=== PATIENT | female | born 1935 | race Caucasian/White ===

== ENCOUNTER 2018-01-01 14:59 | Outpatient (CLI) | payer MEDICARE, BC ==
--- NOTE | 2018-01-02 10:21 | CT ---
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 Evaluate for a perineural mass. FINDINGS: The radial nerve at the level of the forearm appears normal, as there is a clear at plane between the brachial radialis and brachialis muscles containing the radial nerve. No radial nerve mass is apprec iated at the level of the elbow, where the takeoff of the superficial and deep branches takes, place. No large ganglion cyst is appreciated at the level of the elbow joint. There is very subtle loss of alignment of supinator and extensor carpi ulnaris muscles. There appears to be normal fat around the posterior interosseous nerve at the arcade of [place]. Bones: No fracture. No malalignment. Tendons: There are subtle enthesopathic changes at the common extensor tendon. Triceps tendon is intact. Bicep s tendon and brachialis tendons are intact. IMPRESSION: Very subtle atrophy of the supinator muscle and extensor carpi ulnaris can be seen with impingement u ary the posterior interosseous nerve. No mass is appreciated to explain nerve entrapment and the nerv e appears normal at the level of the arcade of [place]. POS: [facility]
== END 2018-01-01 15:00 | disposition home or self-care (01) ==
LOC: SCSULT 14:59 → SCSCT 15:00
PROVIDERS: ATTEND Orthopaedic Surgery Hand Surgery
DX: G56.31 Lesion of radial nerve, right upper limb (principal)
CPT/HCPCS: 82565

== ENCOUNTER 2022-08-23 18:39 | Inpatient (IN) | payer MEDICARE, OTHER ==
[2022-08-23] MEDS ORDERED: Ondansetron ODT 4 MG TAB PO PRN (19:21)
[2022-08-23] MEDS ORDERED: Dextrose 5% in Water 1,000 ML IV PRN (19:21)
[2022-08-23] MEDS ORDERED: Ondansetron PF 4 MG/2 ML Vial IVP PRN (19:21)
[2022-08-23] MEDS ORDERED: Morphine 2 MG/ML VIAL SLOW IVP PRN (19:21)
[2022-08-23] MEDS ORDERED: hydrALAZINE 20 MG/ML VIAL SLOW IVP PRN (19:21)
[2022-08-23] MEDS ORDERED: Morphine 4 MG/ML VIAL SLOW IVP PRN (19:21)
[2022-08-23] MEDS ORDERED: Ipratropium/Albuterol 3 ML NEB NEB PRN (19:21)
[2022-08-23] MEDS ORDERED: Glucagon 1 MG/ML KIT IM PRN (19:21)
[2022-08-23] MEDS ORDERED: Dextrose 50% Abboject 50 ML SYRINGE SLOW IVP PRN (19:21)
[2022-08-23] MEDS ORDERED: traMADol HCl 50 MG TAB PO PRN (19:26)
[2022-08-23] MEDS: Famotidine 20 MG TAB PO SCH (22:43)
[2022-08-23] MEDS: Senokot S 8.6-50 MG TAB PO SCH (22:43)
[2022-08-23] MEDS: Gabapentin 100 MG CAP PO SCH (22:45)
[2022-08-23 23:47] VITALS: BMI 24.1
[2022-08-23] MEDS ORDERED: traMADol HCl 50 MG TAB PO SCH (23:59)
[2022-08-24] MEDS: Acetaminophen 500 MG TAB PO SCH ×4 (00:26→16:48)
[2022-08-24 05:08] LABS: #Eosinphils 0.1 thou/uL (0.0-0.7); #Monocytes 0.8 thou/uL (0.11-0.59); #Neutrophils 8.7 thou/uL (1.40-6.50); %Basophils 0.3 % (0.0-1.0); %Eosinophils 0.5 % (0.0-10.0); %Lymphocytes 12.1 % (21.0-51.0); %Monocytes 7.3 % (0.0-10.0); %Neutrophils 79.2 % (42.0-75.0); Hemoglobin 6.8 g/dL (12.0-16.0); Mean Corpuscular HGB CONC 30.1 g/dL (32.0-36.0); Mean Corpuscular Volume 89.7 fl (78.0-98.0); Mean Platelet Volume 10.8 fL (7.4-10.4); Platelet Count 135 10x3/uL (130-400); RBC Distribution Width 15.3 % (11.5-14.5); Red Blood Cell (RBC) Count 2.52 mill/uL (4.20-5.40); White Blood Cell (WBC) Count 11.1 10x3/uL (4.8-10.8)
[2022-08-24 05:25] LABS: Phosphorus 4.9 mg/dL (2.3-4.7)
[2022-08-24 05:26] LABS: Anion Gap 14 mmol/L (10-20); BUN (Urea Nitrogen) 29 mg/dL (9.8-20.1); Calc. Creatinine Clearance 23 mL/min (70-130); Calcium 8.9 mg/dL (7.8-10.44); Carbon Dioxide 23 mmol/L (23-31); Chloride 105 mmol/L (98-107); Estimated GFR 33; Glucose 162 mg/dL (83-110); Magnesium 1.8 mg/dL (1.6-2.6); Potassium 4.5 mmol/L (3.5-5.1); Sodium 137 mmol/L (136-145)
[2022-08-24] MEDS ORDERED: Sodium Chloride 0.9% 500 ML IVPB SCH (07:15)
[2022-08-24] MEDS: Gabapentin 100 MG CAP PO SCH ×3 (07:17→21:19)
[2022-08-24] MEDS: Sodium Chloride 0.45% 1,000 ML IV SCH ×3 (08:22→21:19)
[2022-08-24] MEDS: Polyethylene Glycol 3350 17 GM Packet PO SCH (09:44)
[2022-08-24] MEDS: Senokot S 8.6-50 MG TAB PO SCH ×2 (09:44→21:19)
[2022-08-24 15:12] LABS: #Basophils 0.1 thou/uL (0.0-0.2); #Eosinphils 0.3 thou/uL (0.0-0.7); #Monocytes 0.9 thou/uL (0.11-0.59); #Neutrophils 7.4 thou/uL (1.40-6.50); %Basophils 0.5 % (0.0-1.0); %Eosinophils 2.6 % (0.0-10.0); %Lymphocytes 15.9 % (21.0-51.0); %Monocytes 9.1 % (0.0-10.0); %Neutrophils 71.4 % (42.0-75.0); Mean Corpuscular HGB CONC 31.3 g/dL (32.0-36.0); Mean Corpuscular Hemoglobin 28.1 pg (27.0-31.0); Mean Corpuscular Volume 89.8 fl (78.0-98.0); Mean Platelet Volume 10.5 fL (7.4-10.4); Platelet Count 124 10x3/uL (130-400); RBC Distribution Width 15.9 % (11.5-14.5); Red Blood Cell (RBC) Count 2.85 mill/uL (4.20-5.40); White Blood Cell (WBC) Count 10.4 10x3/uL (4.8-10.8)
[2022-08-24] MEDS ORDERED: Magnesium 2 GM/50 ML(in water) 2 GM in Premix Bag 1 BAG IVPB SCH (18:15)
[2022-08-24 19:38] LABS: #Eosinphils 0.4 thou/uL (0.0-0.7); #Monocytes 1.1 thou/uL (0.11-0.59); #Neutrophils 7.4 thou/uL (1.40-6.50); %Basophils 0.3 % (0.0-1.0); %Eosinophils 3.9 % (0.0-10.0); %Lymphocytes 11.5 % (21.0-51.0); %Monocytes 10.7 % (0.0-10.0); %Neutrophils 73.1 % (42.0-75.0); Hemoglobin 9.2 g/dL (12.0-16.0); Mean Corpuscular HGB CONC 33.1 g/dL (32.0-36.0); Mean Corpuscular Hemoglobin 28.5 pg (27.0-31.0); Mean Platelet Volume 10.3 fL (7.4-10.4); RBC Distribution Width 15.7 % (11.5-14.5); Red Blood Cell (RBC) Count 3.23 mill/uL (4.20-5.40); White Blood Cell (WBC) Count 10.1 10x3/uL (4.8-10.8)
[2022-08-24 19:53] LABS: Mean Corpuscular Volume 86.1 fl (78.0-98.0)
[2022-08-24 19:54] LABS: Platelet Count 115 10x3/uL (130-400)
[2022-08-24] MEDS: Famotidine 20 MG TAB PO SCH (21:19)
[2022-08-25] MEDS: Acetaminophen 500 MG TAB PO SCH ×4 (00:16→17:33)
[2022-08-25] MEDS: Sodium Chloride 0.45% 1,000 ML IV SCH ×2 (03:03→08:58)
[2022-08-25] MEDS: Gabapentin 100 MG CAP PO SCH ×3 (05:26→21:02)
[2022-08-25 05:31] LABS: #Eosinphils 0.5 thou/uL (0.0-0.7); #Monocytes 0.8 thou/uL (0.11-0.59); #Neutrophils 5.7 thou/uL (1.40-6.50); %Basophils 0.4 % (0.0-1.0); %Eosinophils 5.9 % (0.0-10.0); %Lymphocytes 12.5 % (21.0-51.0); %Monocytes 9.9 % (0.0-10.0); %Neutrophils 70.9 % (42.0-75.0); Hemoglobin 9.2 g/dL (12.0-16.0); Mean Corpuscular HGB CONC 31.4 g/dL (32.0-36.0); Mean Corpuscular Hemoglobin 27.8 pg (27.0-31.0); Mean Corpuscular Volume 88.5 fl (78.0-98.0); Mean Platelet Volume 10.1 fL (7.4-10.4); RBC Distribution Width 16.1 % (11.5-14.5); Red Blood Cell (RBC) Count 3.31 mill/uL (4.20-5.40)
[2022-08-25 05:34] LABS: Platelet Count 107 10x3/uL (130-400)
[2022-08-25 06:00] LABS: Anion Gap 11 mmol/L (10-20); BUN (Urea Nitrogen) 28 mg/dL (9.8-20.1); Calc. Creatinine Clearance 33 mL/min (70-130); Calcium 8.7 mg/dL (7.8-10.44); Carbon Dioxide 22 mmol/L (23-31); Chloride 107 mmol/L (98-107); Estimated GFR 52; Glucose 94 mg/dL (83-110); Magnesium 2.1 mg/dL (1.6-2.6); Phosphorus 2.9 mg/dL (2.3-4.7); Sodium 136 mmol/L (136-145)
[2022-08-25] MEDS: Senokot S 8.6-50 MG TAB PO SCH ×2 (08:57→21:03)
[2022-08-25] MEDS: Polyethylene Glycol 3350 17 GM Packet PO SCH (08:57)
[2022-08-25] MEDS: Famotidine 20 MG TAB PO SCH (21:03)
[2022-08-26 05:32] LABS: #Eosinphils 0.3 thou/uL (0.0-0.7); #Monocytes 0.7 thou/uL (0.11-0.59); #Neutrophils 5.3 thou/uL (1.40-6.50); %Basophils 0.5 % (0.0-1.0); %Monocytes 9.1 % (0.0-10.0); Mean Corpuscular HGB CONC 32.1 g/dL (32.0-36.0); Mean Corpuscular Volume 87.2 fl (78.0-98.0); Mean Platelet Volume 9.9 fL (7.4-10.4); Platelet Count 131 10x3/uL (130-400); RBC Distribution Width 15.8 % (11.5-14.5); Red Blood Cell (RBC) Count 3.21 mill/uL (4.20-5.40); White Blood Cell (WBC) Count 7.5 10x3/uL (4.8-10.8)
[2022-08-26 05:56] LABS: Anion Gap 7 mmol/L (10-20); BUN (Urea Nitrogen) 15 mg/dL (9.8-20.1); Calc. Creatinine Clearance 44 mL/min (70-130); Carbon Dioxide 24 mmol/L (23-31); Chloride 108 mmol/L (98-107); Estimated GFR 74; Glucose 90 mg/dL (83-110); Potassium 4.3 mmol/L (3.5-5.1); Sodium 135 mmol/L (136-145)
[2022-08-26] MEDS: Acetaminophen 500 MG TAB PO SCH ×3 (06:59→12:01)
[2022-08-26] MEDS: Gabapentin 100 MG CAP PO SCH (06:59)
[2022-08-26] MEDS ORDERED: Ascorbic Acid 500 mg Chewable Tablet PO SCH (09:00)
[2022-08-26] MEDS ORDERED: Ferrous Sulfate 325 MG TAB PO SCH (09:00)
[2022-08-26] MEDS: Senokot S 8.6-50 MG TAB PO SCH (09:28)
[2022-08-26] MEDS: Polyethylene Glycol 3350 17 GM Packet PO SCH (09:28)
[2022-08-26 11:39] VITALS: TEMP 98.3
[2022-08-26 16:15] VITALS: BP 148/84
== END 2022-08-26 17:06 | disposition swing bed (61) | DRG 536 ==
LOC: 2NO 18:39 → SURG A 08-24 20:57
PROVIDERS: ADMIT Specialist; ATTEND Specialist
PROC: 30233N1 Transfusion of Nonautologous Red Blood Cells into Peripheral Vein, Percutaneous Approach (ICD-10-PCS; principal; 2022-08-24)
DX: S32.591A Other specified fracture of right pubis, initial encounter for closed fracture (principal); S32.119A Unspecified Zone I fracture of sacrum, initial encounter for closed fracture; R71.0 Precipitous drop in hematocrit; N17.9 Acute kidney failure, unspecified; I12.9 Hypertensive chronic kidney disease with stage 1 through stage 4 chronic kidney disease, or unspecified chronic kidney disease; N18.30 Chronic kidney disease, stage 3 unspecified; K21.9 Gastro-esophageal reflux disease without esophagitis; K58.9 Irritable bowel syndrome, unspecified; I48.91 Unspecified atrial fibrillation; G43.909 Migraine, unspecified, not intractable, without status migrainosus; J20.9 Acute bronchitis, unspecified; I08.3 Combined rheumatic disorders of mitral, aortic and tricuspid valves; R55 Syncope and collapse; G89.11 Acute pain due to trauma; Y92.007 Garden or yard of unspecified non-institutional (private) residence as the place of occurrence of the external cause; Z90.710 Acquired absence of both cervix and uterus; Z95.0 Presence of cardiac pacemaker; Z88.0 Allergy status to penicillin; Z88.2 Allergy status to sulfonamides; Z88.8 Allergy status to other drugs, medicaments and biological substances; Z79.02 Long term (current) use of antithrombotics/antiplatelets; Z79.1 Long term (current) use of non-steroidal anti-inflammatories (NSAID); Z79.899 Other long term (current) drug therapy; Z79.811 Long term (current) use of aromatase inhibitors; Z79.01 Long term (current) use of anticoagulants; Z79.83 Long term (current) use of bisphosphonates; Z79.810 Long term (current) use of selective estrogen receptor modulators (SERMs); Z98.890 Other specified postprocedural states; Z60.2 Problems related to living alone; W01.0XXA Fall on same level from slipping, tripping and stumbling without subsequent striking against object, initial encounter; Y93.H2 Activity, gardening and landscaping; Z86.73 Personal history of transient ischemic attack (TIA), and cerebral infarction without residual deficits
CPT/HCPCS: 36415; 36416; 36430; 70450; 71045; 72125; 72192; 74177; 80048; 80053; 81001; 83735; 84100; 84484; 85025; 85610; 85730; 86850; 86900; 86901; 93005; 93306; 93880; J2405; J3475; J7030; J7168; P9016; Q9967